=== PATIENT | male | born 1965 | race Caucasian/White ===

== ENCOUNTER 2022-06-21 10:57 | Emergency (ER) | payer SELFPAY ==
--- NOTE | 2022-06-21 11:02 | ED.SKABFB ---
HPI - Skin/Abscess/Foreign Bdy General Chief complaint: Skin/Abscess/Foreign Body Stated complaint: rash on abd and upper back Time Seen by Provider: 06/21/22 11:00 Source: patient Mode of arrival: ambulatory Limitations: no limitations History of Present Illness complaint: rash Onset (ago): day(s) (3) Location: chest and back Severity: moderate Quality: burning and pruritic Pain Consistency: constant Relieving factors: none Exacerbating factors: palpation Context: none Associated symptoms: denies other symptoms Treatments prior to arrival: Benadryl Related Data Allergies Allergy/AdvReac Type Severity Reaction Status Date / Time No Known Allergies Allergy Verified 06/21/22 11:05 Review of Systems Review of Systems: All systems reviewed & are unremarkable except as noted in HPI and below PMFSH Past Medical History Medical History No active medical problems Surgical History Surgical History (Updated 06/21/22 @ 12:06 by Stephen Curran MD) No pertinent past surgical history Exam Const: General: healthy appearing, no acute distress and alert Nutritional Appearance: well nourished Orientation/consciousness: patient oriented x3 Limitations: no limitations HENMT: Head: normal to inspection Ears: external ears normal Eyes: Conjunctivae: conjunctivae normal Pupils: Equal, round and reactive pupils present EOM: EOMs intact bilaterally Neck: Neck: normal visual inspection Chest: Chest palpation & inspection: normal inspection of the chest Resp: Effort & Inspection: normal respiratory effort Auscultation: clear to auscultation bilaterally Cardio: Rate: regular rate Rhythm: regular rhythm GI: Auscultation: normal bowel sounds Back/Spine/Pelvis: Cervical Spine: cervical ROM normal Thoracic/Lumbar Spine: thoraco-lumbar ROM normal Skin: General skin exam: normal color Rashes: rashes noted vesicles right truncal arrangement, borders ( Does not cross the midline) sharp, color with an erythematous base and cuenca, fluctuant and distribution ( dermatomal); nontender Neuro: General: patient oriented x3, moves all extremities, no focal motor deficits and CN's II-XI intact bilaterally Speech: normal speech Gait exam (Neuro): Normal gait present Extrem: General: normal to inspection and no clubbing, cyanosis or edema Psych: Mental Status: mental status grossly normal Affect: normal affect Attitude: cooperative Course Vital Signs Vital signs: Vital Signs Temperature 36.6 C 06/21/22 11:07 Pulse Rate 79 06/21/22 11:07 Respiratory Rate 16 06/21/22 11:07 Blood Pressure 148/102 H 06/21/22 11:07 Pulse Oximetry 96 06/21/22 11:07 Oxygen Delivery Room Air 06/21/22 11:07 Temperature 36.6 C 06/21/22 11:07 Pulse Rate 80 06/21/22 11:26 Respiratory Rate 16 06/21/22 11:26 Blood Pressure 130/82 06/21/22 11:26 Pulse Oximetry 97 06/21/22 11:26 Oxygen Delivery Room Air 06/21/22 11:26 Discharge Plan Discharge Clinical Impression: Shingles Qualifiers: Herpes zoster complications: without complications Qualified Code(s): B02.9 - Zoster without complications Patient Disposition: Home, Self-Care Condition: Stable Instructions: Shingles (ED) Additional Instructions: continue to use Benadryl can try some topical Benadryl [id number] as needed. Can try some topical hydrocortisone [id number] if needed. Prescriptions: New famciclovir 500 mg tablet 500 mg PO Q8H 7 Days Qty: 21 0RF Follow-up/Referrals: Marcus Marin MD [Primary Care Provider] - Time of Disposition: 11:09
[2022-06-21 11:07] VITALS: BP 148/102; PULSE 79; RESP 16; TEMP 36.6; O2SAT 96
[2022-06-21 11:26] VITALS: BP 130/82; PULSE 80; RESP 16; O2SAT 97
== END 2022-06-21 11:27 | disposition home or self-care (01) ==
LOC: CHSED 11:21
PROVIDERS: Emergency Provider Emergency Medicine; PCP Family Medicine
DX: B02.9 Zoster without complications (principal)
CPT/HCPCS: 99283

== ENCOUNTER 2023-12-29 18:28 | Emergency (ER) | payer SELFPAY ==
[2023-12-29] VITALS (14 sets, daily range): BP systolic 135–151; BP diastolic 83–103; PULSE 69–76; RESP 18–20; TEMP 36.8; O2SAT 96–100
--- NOTE | ~2023-12-29 | CT_ITS ---
EXAMINATION: CT BRAIN W/O DATE: 12/29/2023 19:44 INDICATION: Head injury after fall TECHNIQUE: Computed tomography (CT) of the head was performed without intravenous contrast. The dose- length product was 605.33 mGy-cm. Automated exposure control and iterative reconstruction technique w ere employed. COMPARISON: No prior studies for comparison. FINDINGS: Normal brain parenchymal volume for age. Normal anne-white differentiation. No acute intrac ranial hemorrhage, infarction, mass or mass effect. No ventriculomegaly or midline shift. Midline sagittal images demonstrate a normal corpus callosum, c raniovertebral junction and sella turcica. Basilar cisterns are patent. Paranasal sinuses are pneumatized. There are bilateral mastoid effusions. No depressed skull fracture s. IMPRESSION: 1. No acute intracranial abnormality. 2: Bilateral mastoid effusions. Reviewed, dictated and finalized at location A.
--- NOTE | ~2023-12-29 | XR_ITS ---
XR chest 1V portable 12/29/2023 19:43 Indication: Accidental fall Procedure: PA view of the chest Comparison: No prior studies for comparison. Findings: Heart size normal. No focal air space disease, pulmonary edema, pleural effusion or suspect ed pneumothorax. Impression: 1: No acute cardiopulmonary disease. Reviewed, dictated and finalized at location A. Impression: 1: No acute cardiopulmonary disease.
--- NOTE | ~2023-12-29 | CT_ITS ---
EXAMINATION: CT cervical spine wo con DATE: 12/29/2023 19:43 INDICATION: Neck pain after fall TECHNIQUE: Computed tomography (CT) of the cervical spine was performed without intravenous contrast. The dose-length product was 410 mGy-cm. Automated exposure control and iterative reconstruction tech [place] [employer] were employed. COMPARISON: No prior studies for comparison. FINDINGS: There is straightening of cervical lordosis. There is degenerative disc disease at multiple levels. Prominent bridging osteophyte at C5-6 ventrally. Craniovertebral junction is normal. No acut e fracture or traumatic malalignment. There is multilevel uncinate and facet hypertrophy. Lung apices are unremarkable. There is a lipoma in the right posterior paravertebral soft tissues, likely of no significance. IMPRESSION: 1. No acute abnormality of the cervical spine. Reviewed, dictated and finalized at location A.
--- NOTE | ~2023-12-29 | XR_ITS ---
XR pelvis 1-2V 12/29/2023 19:43 Indication: Accidental fall. Procedure: AP pelvis Comparison: No prior studies for comparison. Findings: Pelvic rings are intact. No fracture or traumatic malalignment. No soft tissue abnormality. Impression: 1: No acute fracture. Reviewed, dictated and finalized at location A. Impression: 1: No acute fracture.
--- NOTE | 2023-12-29 18:55 | ECG_ITS ---
Measurements Intervals [place] Rate: 70 P: 41 SC: 147 QRS: 29 QRSD: 149 T: -9 QT: 436 QTc: 472 Interpretive Statements SINUS RHYTHM RIGHT BUNDLE BRANCH BLOCK ST-T WAVE ABNORMALITY IN INFERIOR LEADS- CONSIDER ISCHEMIA BASELINE ARTIFACT- I, II, III, AVR, AVL, AVF ABNORMAL ECG NO PREVIOUS ECG AVAILABLE FOR COMPARISON Electronically Signed On 12-29-2023 19:54:00 CDT by Josafat Henao D.O.
[2023-12-29 19:01] LABS: Glucose Point of Care 149 mg/dl (65-105)
[2023-12-29 19:08] LABS: Basophils Absolute Auto 0.04 K/mm3 (0.00-0.10); Basophils Percent Auto 0.3 % (0.0-1.0); Eosinophils Absolute Auto 0.03 K/mm3 (0.02-0.50); Eosinophils Percent Auto 0.2 % (1.0-6.0); Hematocrit 44.9 % (40.0-54.0); Hemoglobin 14.7 g/dL (14.0-18.0); Immature Granulocyte Absolute 0.08 K/mm3 (0.00-0.00); Immature Granulocyte Percent A 0.6 % (0.0-0.0); Lymphocytes Absolute Auto 1.15 K/mm3 (1.10-4.50); Lymphocytes Percent Auto 8.4 % (18.0-42.0); Mean Corpuscular HGB Conc 32.7 g/dL (32-36); Mean Corpuscular Hemoglobin 29.9 pg (27.0-31.0); Mean Corpuscular Volume 91.4 fL (78.0-102.0); Mean Platelet Volume 9.5 fl (8.7-11.0); Monocytes Absolute Auto 1.01 K/mm3 (0.10-0.90); Monocytes Percent Auto 7.4 % (2.0-11.0); Neutrophils Absolute Auto 11.32 K/mm3 (1.70-7.20); Neutrophils Percent Auto 83.1 % (50.0-70.0); Platelet Count Result 243 K/mm3 (150-420); Red Blood Count 4.91 M/mm3 (4.70-6.10); Red Cell Distribution Width 13.2 % (11.6-14.4); White Blood Count 13.6 K/mm3 (4.8-10.8)
--- NOTE | 2023-12-29 19:16 | ED.FALL ---
HPI - Fall General Chief Complaint: Syncope Stated Complaint: fall and head injury after syncopal episode Time Seen by Provider: 12/29/23 18:44 Source: patient Mode of arrival: ambulatory Limitations: no limitations History of Present Illness HPI Narrative: 58-year-old male with no significant past medical history was standing at his work site when he -- [place] dizzy and subsequently fell down and sustained right supraorbital laceration. -- Unresponsive for an unknown period of time. When the patient woke up he found himself on the floor. No urinary incontinence. No focal neuro deficit after waking up. Denied any headache or vomiting. after the fall the patient drove himself to his mother's house and fed his chickens. He then drove home. His had him come to the ER. -- Subsequently the patient is noted to be confused. He was unable to name the month and his age no history of alcohol or drug use. MD complaint: fall Onset (ago): hour(s) ( 3 hours ago) Fall from: standing Fall witnessed: no Place fall occurred: work Loss of consciousness: yes Prolonged down time: unclear Symptoms prior to fall: dizziness Location of injury: face Location of injury - extremities: Right: elbow Associated symptoms (after fall): denies Related Data Allergies Allergy/AdvReac Type Severity Reaction Status Date / Time No Known Allergies Allergy Verified 06/21/22 11:05 Review of Systems Review of Systems: All systems reviewed & are unremarkable except as noted in HPI and below Constitutional: Constitutional: Reports as per HPI and Reports no additional constitutional complaints Eyes: Eyes: Reports as per HPI and Reports no additional eye complaints ENT: Reports system reviewed and no additional complaints, except as documented and Reports as per HPI Comments: Bilateral hearing aids Cardiovascular: Cardiovascular: Reports as per HPI and Reports no additional cardiovascular complaints Respiratory: Respiratory: Reports as per HPI and Reports no additional respiratory complaints Gastrointestinal: Gastrointestinal: Reports as per HPI and Reports no additional gastrointestinal complaints Genitourinary: Genitourinary: Reports no additional male genitourinary complaints and Reports as per HPI Musculoskeletal: Musculoskeletal: Reports no additional musculoskeletal complaints and Reports as per HPI Integumentary/Breasts: Skin/Breast: Reports system reviewed and no additional complaints, except as docu and Reports as per HPI Comments: right supraorbital laceration. Right elbow small puncture hole with minimal bleeding Neurologic: Reports system reviewed and no additional complaints, except as documented and Reports as per HPI Psychiatric: Psychiatric: Reports no additional psychiatric complaints and Reports as per HPI Endocrine: Endocrine: Reports no additional endocrine complaints and Reports as per HPI Hematologic/Lymphatic: Hematologic/Lymphatic: Reports no additional hematologic/lymphatic complaints and Reports as per HPI Allergic/Immunologic: Allergic/Immunologic: Reports no additional allergic/immunologic complaints and Reports as per HPI PMFSH Past Medical History Medical History No active medical problems Surgical History Surgical History No pertinent past surgical history Exam Narrative: blood pressure is 151/99. Patient is not orthostatic. Const: General: no acute distress Orientation/consciousness: patient oriented x3 Limitations: no limitations HENMT: Head: normal to inspection Head images: 1. 2 cm laceration 2. 2 cm laceration Ears: external ears normal and TM's normal bilaterally Face/Nose/Sinus: Normal external nose present and Normal nares present Face and sinus: normal facial exam Mouth: Yes Normal oral and palatal mucosa present Throat: posterior oropharynx
[2023-12-29 19:19] LABS: Appearance Urine Clear (Clear); Bilirubin Urine Negative (Negative); Blood Urine Negative (Negative); Color Urine Yellow (Yellow); Glucose Urine UA Negative (Negative); Ketones Urine Negative (Negative); Leukocyte Esterase Ur Negative LEU/UL (Negative); Nitrate Urine Negative (Negative); Protein Urine 1+ (Negative); Specific Grav Ur 1.025 (1.010-1.020)
[2023-12-29 19:22] LABS: Partial Thromboplastin Time 21.9 Sec (23.9-30.70); Prothrombin Time 10.9 Seconds (9.50-12.1)
[2023-12-29 19:25] LABS: Add Urine Microscopic? YES; Bacteria Urine Trace /hpf; RBC Urine 0-2 /hpf (0-2); WBC Urine 0-3 /hpf (0-3)
[2023-12-29 19:26] LABS: Mucus Urine Rare /lpf
[2023-12-29 19:28] LABS: Lactic Acid Reflex 1.2 mmol/L (0.4-2.0)
[2023-12-29 19:34] LABS: Amphetamine Screen Urine Negative (Negative); Barbiturate Screen Urine Negative (Negative); Benzodiazepines Screen Urine Negative (Negative); Cannabinoid Screen Urine Negative (Negative); Cocaine Screen Urine Negative (Negative); Methadone Screen Urine Negative (Negative); Opiate Screen Urine Negative (Negative); Phencyclidine Screen Urine Negative (Negative)
[2023-12-29 19:35] LABS: Alanine Aminotransferase 82 U/L (16-63); Albumin Level 3.7 g/dL (3.4-5.0); Alkaline Phosphatase 67 U/L (46-116); Anion Gap 7 mmol/L (8-16); Aspartate Amino Transferase 69 U/L (15-37); Bilirubin,Total 0.4 mg/dL (0.00-1.00); Blood Urea Nitrogen 26 mg/dL (7-18); Calcium 8.6 mg/dL (8.5-10.1); Carbon Dioxide 30 mmol/L (21-32); Chloride 106 mmol/L (98-108); Estimated CRCL calculation 96 ml/min; Estimated Glomerular Filt Rate > 60; Glucose 124 mg/dL (70-99); Osmolality Calculated 301 mOsm/kg (285-295); Potassium 4.4 mmol/L (3.5-5.1); Sodium 143 mmol/L (136-145); Total Protein 6.6 g/dL (6.4-8.2); Troponin I 10.5 ng/L (0.00-60.4)
[2023-12-29 19:39] LABS: Ethanol < 3 mg/dL (0-6)
[2023-12-29 19:40] LABS: Thyroid Stimulating Hormone 2.35 uIU/mL (0.36-3.74)
[2023-12-29 19:41] LABS: Acetaminophen < 2 ug/mL (10-30); NT Pro B Type Natriuretic Pept 31 pg/mL (0-125)
--- NOTE | 2023-12-29 20:40 | PC.NURSE ---
Discussed c pt need to stay for obs due to syncopal episode and head injury. Pt aware of risks but not wanting to be admitted for 23 hr obs even p and this RN explained everything. Pt wanting to sign AMA and will go home c and son to monitor.
== END 2023-12-29 20:40 | disposition left against medical advice (07) ==
PROVIDERS: Emergency Provider Internal Medicine Critical Care Medicine; PCP Family Medicine
DX: R55 Syncope and collapse (principal); S06.9X9A Unspecified intracranial injury with loss of consciousness of unspecified duration, initial encounter; W19.XXXA Unspecified fall, initial encounter; Y99.0 Civilian activity done for income or pay
CPT/HCPCS: 12013; 36415; 70450; 71045; 72125; 72170; 80053; 80307; 81001; 82948; 83605; 83880; 84443; 84484; 85025; 85610; 85730; 93005; 99284

== ENCOUNTER 2024-01-14 16:01 | Emergency (ER) | payer BC, SELFPAY ==
[2024-01-14] VITALS (11 sets, daily range): BP systolic 121–158; BP diastolic 85–109; PULSE 58–109; RESP 14–19; TEMP 36.4; O2SAT 96–100
--- NOTE | ~2024-01-14 | XR_ITS ---
EXAMINATION: XR chest 1V portable DATE: 01/14/2024 16:36 INDICATION: Chest pain. TECHNIQUE: A single frontal view of the chest was obtained. COMPARISON: Chest view 12/29/2023 FINDINGS: There is mild atelectasis at the lung bases. No pleural effusion or pneumothorax. The heart size is normal. IMPRESSION: 1. Mild atelectasis at the lung bases. Reviewed, dictated and finalized at location A.
--- NOTE | 2024-01-14 16:14 | ECG_ITS ---
Measurements Intervals [place] Rate: 97 P: 39 MA: 139 QRS: 38 QRSD: 149 T: 5 QT: 406 QTc: 517 Interpretive Statements SINUS RHYTHM POSSIBLE LEFT ATRIAL ENLARGEMENT RIGHT BUNDLE BRANCH BLOCK BORDERLINE ST-T WAVE ABNORMALITY- INFERIOR LEADS BASELINE ARTIFACT- I, III, AVR, AVL, AVF ABNORMAL ECG COMPARED TO ECG 12/29/2023 19:06:06 NO SIGNIFICANT CHANGES Electronically Signed On 01-14-2024 16:28:36 CDT by Josafat Henao D.O.
--- NOTE | 2024-01-14 16:16 | ED.SYNCOPE ---
HPI - Syncope General Chief Complaint: Syncope Stated Complaint: syncope Time Seen by Provider: 01/14/24 16:05 History of Present Illness HPI narrative: Patient presents here after syncopal episode, he has had several syncopal episodes over the last few weeks. When EMS arrived they did do a rhythm strip in noticed that he did appear to be in second degree type 2 heart block, they gave him a dose of some atropine after which he threw up and then converted to sinus rhythm. He denies any complaints right now. Related Data Allergies Allergy/AdvReac Type Severity Reaction Status Date / Time No Known Allergies Allergy Verified 01/14/24 16:17 Review of Systems Review of Systems: CONST: No fever. HEENT: No sore throat C/V: No chest pain RESP: No cough GI: Nausea now resolved : No dysuria. M/S: No joint pain. SKIN: No rash. NEURO: Syncope PSYCH: [No depression] [facility] Past Medical History Medical History No active medical problems Surgical History Surgical History No pertinent past surgical history Exam Narrative: EXAMINATION OF ORGAN SYSTEMS/BODY AREAS: Constitutional: Vital signs per nursing GENERAL:[No acute distress, non-toxic appearing.] HEAD: Normal with no signs of head trauma. EYES: EOMI, conjunctiva normal ENT: Hearing grossly intact LUNGS: Nonlabored breathing. HEART: Tachycardic ABD: [Soft], [nontender to palpation] EXT: Normal range of motion SKIN: [No rashes or lesions.] NEURO: [Alert and oriented x 3. No gross focal sensory or strength deficits.] PSYCH: Normal affect Course Vital Signs Vital signs: Vital Signs Temperature 97.6 F 01/14/24 16:05 Pulse Rate 109 H 01/14/24 16:05 Respiratory Rate 16 01/14/24 16:05 Blood Pressure 158/109 H 01/14/24 16:05 Pulse Oximetry 96 01/14/24 16:05 Oxygen Delivery Room Air 01/14/24 16:05 Temperature 97.6 F 01/14/24 16:05 Pulse Rate 63 01/14/24 18:31 Respiratory Rate 17 01/14/24 18:31 Blood Pressure 132/96 H 01/14/24 18:31 Pulse Oximetry 96 01/14/24 18:16 Oxygen Delivery Room Air 01/14/24 16:11 MDM - Syncope MDM Narrative Medical decision making narrative: Patient presenting here with syncope, has had multiple syncopal episodes recently, and totally done by EMS does show second-degree heart block type 2, he is now back in sinus rhythm. Labs within acceptable limits, I did call the the college teacher here Dr Delgado who recommended transfer to [facility] for possible pacemaker placement. I discussed this plan with the patient who reluctantly accepts. Called transfer center. Dr Yan hospitalist accepts. There is a bed available; patient will be transferred in stable condition at this time. On telemetry at 1844 still in NSR. Lab Data 01/14/24 16:16 01/14/24 16:16 Labs: Lab Results 01/14/24 Range/Units 16:16 WBC 8.5 (4.5-10.0) K/mm3 RBC 4.80 (4.6-6.20) M/mm3 Hgb 14.8 (14.0-18.0) g/dL Hct 44.9 (42.0-52.0) % MCV 93.5 (80-100) fl MCH 30.8 (26-34) pg MCHC 33.0 (32-36) g/dl RDW 13.3 (11.5-14.5) % Plt Count 242 (150-375) k/mm3 MPV 9.8 (7.4-10.4) fl Immature Gran % (Auto) 0.4 (0-0.5) % Neut % (Auto) 68.3 (45.5-73.1) % Lymph % (Auto) 20.4 (18.3-44.2) % [place] % (Auto) 9.4 H (2.6-8.5) % Eos % (Auto) 1.1 (0-4.4) % Baso % (Auto) 0.4 (0.2-1.2) % Lymph # (Auto) 1.74 (0.9-3.2) K/mm3 [place] # (Auto) 0.8 H (0.1-0.6) K/mm3 Eos # (Auto) 0.1 (0-0.3) K/mm3 Baso # (Auto) 0.0 (0.0-0.1) K/mm3 Abs Immat Gran (auto) 0.03 (0.00-0.031) K/mm3 Absolute Neuts (auto) 5.9 (1.3-6.7) K/mm3 Absolute Nucleated RBC 0.000 (0.0-0.012) K/mm3 Nucleated RBC % 0.0 (0.0-0.2) % Sodium 137 (137-145) mmol/L Potassium 4.1 (3.4-5.0) mmol/L Chloride 106 (98-107) mmol/L Carbon Dioxide 29 (
[2024-01-14 16:22] LABS: Basophils Percent Auto 0.4 % (0.2-1.2); Eosinophils Absolute Auto 0.1 K/mm3 (0-0.3); Eosinophils Percent Auto 1.1 % (0-4.4); Hematocrit 44.9 % (42.0-52.0); Hemoglobin 14.8 g/dL (14.0-18.0); Immature Granulocyte Absolute 0.03 K/mm3 (0.00-0.031); Immature Granulocyte Percent A 0.4 % (0-0.5); Lymphocytes Absolute Auto 1.74 K/mm3 (0.9-3.2); Lymphocytes Percent Auto 20.4 % (18.3-44.2); Mean Corpuscular Hemoglobin 30.8 pg (26-34); Mean Corpuscular Volume 93.5 fl (80-100); Mean Platelet Volume 9.8 fl (7.4-10.4); Monocytes Absolute Auto 0.8 K/mm3 (0.1-0.6); Monocytes Percent Auto 9.4 % (2.6-8.5); Neutrophils Absolute Auto 5.9 K/mm3 (1.3-6.7); Neutrophils Percent Auto 68.3 % (45.5-73.1); Platelet Count Result 242 k/mm3 (150-375); Red Cell Distribution Width 13.3 % (11.5-14.5); White Blood Count 8.5 K/mm3 (4.5-10.0)
[2024-01-14 16:33] LABS: Alanine Aminotransferase 27 U/L (6-50); Albumin Level 4.1 g/dL (3.5-5.1); Alkaline Phosphatase 68 U/L (38-126); Anion Gap 2 mmol/L (4-12); Aspartate Amino Transferase 32 U/L (17-59); Bilirubin,Total 0.4 mg/dL (0.2-1.3); Blood Urea Nitrogen 28 mg/dL (9-20); Carbon Dioxide 29 mmol/L (22-30); Chloride 106 mmol/L (98-107); Estimated CRCL calculation 112 ml/min; Estimated Glomerular Filt Rate > 60; Glucose 129 mg/dL (65-110); Potassium 4.1 mmol/L (3.4-5.0); Sodium 137 mmol/L (137-145)
[2024-01-14 16:46] LABS: Troponin I < 0.012 ng/mL (0.000-0.034)
--- NOTE | 2024-01-14 18:14 | PC.NURSE ---
[facility] transfer center called at 1813 for triage report and update on patient for admission
--- NOTE | 2024-01-14 19:16 | ECG_ITS ---
Measurements Intervals [place] Rate: 58 P: 41 TN: 141 QRS: 29 QRSD: 146 T: 10 QT: 462 QTc: 457 Interpretive Statements SINUS BRADYCARDIA RIGHT BUNDLE BRANCH BLOCK BORDERLINE ST-T WAVE ABNORMALITY- INFERIOR LEADS ABNORMAL ECG COMPARED TO ECG 01/14/2024 16:22:49 SINUS BRADYCARDIA NOW PRESENT Electronically Signed On 01-15-2024 7:27:15 CDT by Josafat Henao D.O.
[2024-01-14 19:49] LABS: Troponin I < 0.012 ng/mL (0.000-0.034)
== END 2024-01-14 20:58 | disposition short-term general hospital (02) ==
PROVIDERS: Emergency Provider Emergency Medicine; PCP Family Medicine
DX: R55 Syncope and collapse (principal); I44.1 Atrioventricular block, second degree; I45.10 Unspecified right bundle-branch block; R00.1 Bradycardia, unspecified; R94.31 Abnormal electrocardiogram [ECG] [EKG]
CPT/HCPCS: 36415; 71045; 80053; 84484; 85025; 93005; 99285

== ENCOUNTER 2024-12-08 07:38 | Emergency (ER) | payer BC, SELFPAY ==
--- NOTE | ~2024-12-08 | XR_ITS ---
XR chest 2V 12/08/2024 08:02 Indication: Shortness of breath Procedure: 2 view chest Comparison: 01/14/2024 Findings: Heart size normal. Pacemaker leads are stable. Left there is left basilar atelectasis/scarr ing, unchanged. The lungs are hyperinflated which is consistent with, but not diagnostic of chronic o bstructive pulmonary disease. No focal pneumonia, edema, significant effusion or pneumothorax. Impression: 1: Left basilar atelectasis/scarring, unchanged. Reviewed, dictated and finalized at location B. [facility] COUNTER Impression: 1: Left basilar atelectasis/scarring, unchanged.
[2024-12-08 07:38] VITALS: BP 149/91; PULSE 72; RESP 17; TEMP 36.5; O2SAT 100
--- NOTE | 2024-12-08 07:46 | ED_ITS ---
HPI - URI/Sore Throat General Chief Complaint: Upper Respiratory Infection Stated Complaint: cold sxs/ URI Time Seen by Provider: 12/08/24 07:45 Source: patient Mode of arrival: ambulatory Limitations: no limitations History of Present Illness HPI Narrative: Patient is a 59-year-old male with cough and chest congestion of the upper chest for the past 4 days. He is having white phlegm. No fever or chills. Sick contact 2 weeks ago with his son. Similar symptoms. Shortness of breath with exertion only. No chest pain. Nonsmoker. MD elicited complaint: cough and nasal congestion Pertinent past history: other ( None) Onset (ago): day(s) (4) Consistency: constant Severity: mild Pain scale (0-10): 1 Exacerbating factors: exertion Relieving factors: rest Context: sick contacts Associated symptoms: nasal congestion and shortness of breath Treatments prior to arrival: none Related Data Allergies Allergy/AdvReac Type Severity Reaction Status Date / Time No Known Allergies Allergy Verified 12/08/24 07:46 Review of Systems Review of Systems: All systems reviewed & are unremarkable except as noted in HPI and below Constitutional: Constitutional: Reports no additional constitutional complaints Eyes: Eyes: Reports no additional eye complaints ENT: Reports system reviewed and no additional complaints, except as documented Cardiovascular: Cardiovascular: Reports no additional cardiovascular complaints Respiratory: Respiratory: Reports no additional respiratory complaints Gastrointestinal: Gastrointestinal: Reports no additional gastrointestinal complaints Genitourinary: Genitourinary: Reports no additional male genitourinary complaints Musculoskeletal: Musculoskeletal: Reports no additional musculoskeletal complaints Integumentary/Breasts: Skin/Breast: Reports system reviewed and no additional complaints, except as docu Neurologic: Reports system reviewed and no additional complaints, except as do cumented Psychiatric: Psychiatric: Reports no additional psychiatric complaints Endocrine: Endocrine: Reports no additional endocrine complaints Hematologic/Lymphatic: Hematologic/Lymphatic: Reports no additional hematologic/lymphatic complaints Allergic/Immunologic: Allergic/Immunologic: Reports no additional allergic/immunologic complaints PMFSH Past Medical History Medical History No active medical problems Surgical History Surgical History No pertinent past surgical history Exam Const: General: ill appearing Nutritional Appearance: well nourished Orientation/consciousness: patient oriented x3 Limitations: no limitations HENMT: Head: normal to inspection Ears: external ears normal Face/Nose/Sinus: Normal external nose present Eyes: Conjunctivae: conjunctivae normal Pupils: Equal, round and reactive pupils present EOM: EOMs intact bilaterally Neck: Neck: normal visual inspection Chest: Chest palpation & inspection: normal inspection of the chest Resp: Effort & Inspection: normal respiratory effort and not labored Auscultation: clear to auscultation bilaterally, crackles ( bilateral lower bases), no rales, rhonchi ( bilateral lower bases), no wheezes, breath sounds present and diminished lung sounds diffuse Cardio: Rate: regular rate Rhythm: regular rhythm Heart sounds: no murmurs GI: Inspection: non-distended GI Palp: Yes Soft to palpation and No Tenderness to palpation present (GI) Auscultation: normal bowel sounds : General: Yes bladder normal to palpation Back/Spine/Pelvis: Back: no CVA tenderness Skin: General skin exam: normal color Rashes: no rashes Wounds: no wounds Neuro: General: patient oriented x3 Cranial nerves: Yes Nystagmus not present Speech: normal speech Extrem: General: normal to inspection Psych: Mental Status: mental status grossly normal Affect: normal affect Attitude: cooperative Course Vital Signs Vital signs: Vital Signs Temperature 36.5 C 12/08/24 07:38 Pulse Rate 72 12/08/24 07:38 Respiratory Rate 17 12/08/24 07:38 Blood Pressure 149/91 H 12/08/24 07:38 Pulse Oximetry 100 12/08/24 07:38 Oxygen Delivery Room Air 12/08/24 07:38 Temperature 36.5 C 12/08/24 07:38 Pulse Rate 72 12/08/24 07:38 Respiratory Rate 17 12/08/24 07:38 Blood Pressure 149/91 H 12/08/24 07:38 Pulse Oximetry 100 12/08/24 07:48 Oxygen Delivery Room Air 12/08/24 07:48 MDM - URI/Sore Throat MDM Narrative Medical decision making narrative: patient is a 59-year-old male with upper respiratory complaints. We will do a COVID panel test. We will do a chest x-ray. Lab Data Attestation: I reviewed the patient's lab results. Labs: Lab Results 12/08/24 Range/Units 07:42 Influenza A (RT-PCR) Negative (Negative) Influenza B (RT-PCR) Negative (Negative) RSV (RT-PCR) Negative (Negative) SARS-CoV-2 RNA (RT-PCR) Negative (Negative) Imaging Data Attestation: I personally reviewed and interpreted this imaging study as follows: Radiologist's impression: Chest x-ray is negative for acute process Discharge Plan Discharge Clinical Impression: Bronchitis Patient Disposition: Home, Self-Care Condition: Stable Instructions: Antibiotic Form, Acute Bronchitis (ED) Patient Language: Kitt[place] Prescriptions: New azithromycin 250 mg tablet See Rx Instructions .ROUTE .COMPLEX Qty: 6 0RF Rx Instructions: For 250 mg dose pack: take 500 mg today (day 1), then 250 mg for 4 days (days 2-5) prednisone 20 mg tablet 40 mg PO DAILY 3 Days Qty: 6 0RF Follow-up/Referrals: Marcus Marin MD [Primary Care Provider] - Time of Disposition: 08:49
[2024-12-08 07:48] VITALS: O2SAT 100
--- OUTSIDE RECORDS SUMMARY | 2024-12-08 08:20 | XMS_ITS | Clinical Summary ---
Author Organization [facility] Address [address] [place] [address] Care Team Providers Care Drier Name Role Phone Gibson Sweeney MD Unavailable [phone] Marcus Marin MD Primary Care Provide r Allergies No known active allergies Medications multivitamin tabletIndication s:Vitamin Deficiency Prevention Take 1 tablet by mouth Active Active Problems Problem Noted Date Diagnosed Date Cardiac pacemaker in situ 01/19/2024 Overview (01/19/2024): Mcfarlane Assurity Dual Pacemaker. Dx; Second Degree AVB Type II. DOI 01/17/2024- Patel. Ramy leija. Sensation of fullness in ear 01/16/2024 Heart block AV second degree 01/14/2024 Encounters Date Type Department Care Team Description 09/27/2024 8:45 AM SCALLOPER Office Visit [facility] Medical Group Cardiology [address] [place] [address] Isabelle Navas MD Heart block AV second degree (Primary Dx); Cardiac pacemaker in situ from Last 3 Months Social History Tobacco Use Types Packs/Day Years Used Date Smoking Tobacco: Never Tobacco Cessation:Counseling Given: Not Answered [facility] Utilities Answer Date Recorded In the past 12 months has e electric, gas, oil, or water company threatened to shut off services in your home? Patient declined 01/17/2024 Social Connection and Isolation Panel [NHANES] A nswer Date Recorded In a typical week, how many times do you talk on the phone with family, friends, or neighbors? Patient declined 01/17/2024 How often do you get togethe r with friends or relatives? Patient declined 01/17/2024 How often do you attend latter-day or mosque serv ices? Patient declined 01/17/2024 Do you belong to any clubs o r organizations such as latter-day groups, unions, fraternal or athletic groups, or school groups? Patient declined 01/17/2024 How often do you attend meet ings of the clubs or organizations you belong to? Patient declined 01/17/2024 Are you , , di vorced, , never , or living with a partner? 01/17/2024 Overall Financial Resource Strain (CARDIA) Answe r Date Recorded How hard is it for you to pa y for the very basics like food, housing, medical care, and heating? Patient declined 01/17/2024 Hunger Vital Sign Answer Date Recorded Within the past 12 months, y ou worried that your food would run out before you got the money to buy more. Never true 01/17/20 24 Within the past 12 months, t he food you bought just didn't last and you didn't have money to get more. Never true 01/17/2024 PRAPARE - Transportation Answer Date Re corded In the past 12 months, has l ack of transportation kept you from medical appointments or from getting medications? No 10/2023 In the past 12 months, has l ack of transportation kept you from meetings, work, or from getting things needed for daily living? No 01/17/2024 Housing Stability Vital Sign Answer Ryan e Recorded In the last 12 months, was t here a time when you were not able to pay the mortgage or rent on time? No 01/17/2024 In the last 12 months, how many places have you lived? 1 01/17/2024 In the last 12 months, was t here a time when you did not have a steady place to sleep or slept in a senior care (including now)? No 01/17/2024 Personal Safety Answer Date Recorded Have you ever been in or are you currently in a harmful physical or emotional relationship or is someone making you feel afraid or unsafe? Denies 01/14/2024 Sex and Gender Information Value Date Recorded Sex Assigned at Not on file Legal Sex Male 5:55 PM CDT Gender Identity Not on file Sexual Orientation Not on file Obstetrics History Last Filed Vital Signs Vital Sign Reading Time Taken Comments Blood Pressure 128/78 09/27/2024 8:36 AM SCALLOPER Pulse 66 09/27/2024 8:36 AM SCALLOPER Temperature 36.7 C (98.1 F) 01/18/2024 8:00 AM CDT Respiratory Rate 16 01/18/2024 8:00 AM CDT Oxygen Saturation 94% 09/27/2024 8:36 AM SCALLOPER Inhaled Oxygen Concentration - - Weight 84.8 kg (187 lb) 09/27/2024 8:36 AM SCALLOPER Height 188 cm (6' 2 ) 09/27/2024 8:36 AM SCALLOPER Body Mass Index 24.01 09/27/2024 8:36 AM SCALLOPER Plan of Treatment Health Maintenance Due Date Last Done Comments Colon Cancer Screening-Colonoscopy 1963 Depression Screening 1963 Hepatitis C Screening 1963 Prostate Cancer Screening-PSA 1963 DTaP/Tdap/Td Vaccine (1 - Tdap) 1974 Hepatitis B Screening 1981 Regular Well Visit/Exam 18-64 1981 Zoster Vaccine (1 of 2) 2013 Influenza Vaccine (#1) 2024 Pneumococcal vaccine <65 Aged Out No longer eligible based on patient's age to complete this topic Medical Devices Implanted Type Area Camp Boss Device Identifier Shelf Expiration Date Model / Serial / Lot [employer] Tendril Sts 6fr 58cm Is-1 Connector Active Fixation Bipolar Soft /58 - [id number] - [id number] Implanted:Qt y: 1 on 01/17/2024 by Gibson Sweeney MD at [facility] Lead Right: Ventricle [employer] 10/17/2026 2088TC/5 8 / [id number] / [employer] Tendril Sts 6fr 52cm Is-1 Connector Active Fixation Bipolar Soft /52 - [id number] - [id number] Implanted:Qt y: 1 on 01/17/2024 by Gibson Sweeney MD at [facility] Lead Right: Atrial Appendage [employer] 11/17/2026 2088TC/5 2 / [id number] / [employer] Assurity Mri [id number] 2 Chamber Is-1 Connector Thk6mm Pacemaker [id number] - [id number] - [id number] Implanted:Qt y: 1 on 01/17/2024 by Gibson Sweeney MD at [facility] Pacemaker Right: Infraclavicular Anterior Chest Wall [employer] 05/11/2025 [id number] / [id number] / Insurance BL CHOICE PRF PPO ID BL CHOICE PRF PPO [place] Advance Directives For more information, please contact: [phone] * Full Code (Latest Code Status on File) Date Activated Date Inactivated Comments 01/14/2024 11:56 PM 01/18/2024 7:09 PM Care Teams Drier Relationship Specialty Start Date End Date Marcus Marin MD [address] [place] [address] PCP - General Family Medicine 01/26/24 Gibson Sweeney MD [address] [place] [id number] Consulting Physician Cardiology 01/18/24
--- OUTSIDE RECORDS SUMMARY | 2024-12-08 08:20 | XMS_ITS | Referral Summary ---
Author Organization [facility] Address [address] [place] [address] Care Team Providers Care Rollway Worker Name Role Phone Gibson Sweeney MD Unavailable [phone] Marcus Marin MD Primary Care Provide r Encounters Date Type Department Care Team Description 09/27/2024 8:45 AM QUICK SKETCH ARTIST Office Visit [facility] Medical Group Cardiology [address] [place] [phone] Isabelle Navas MD Heart block AV second degree (Primary Dx); Cardiac pacemaker in situ from Last 3 Months Allergies No known active allergies Medications multivitamin tabletIndication s:Vitamin Deficiency Prevention Take 1 tablet by mouth Active Active Problems Problem Noted Date Diagnosed Date Cardiac pacemaker in situ 01/19/2024 Overview (01/19/2024): Mcfarlane Assurity Dual Pacemaker. Dx; Second Degree AVB Type II. DOI 01/17/2024- Patel. Ramy leija. Sensation of fullness in ear 01/16/2024 Heart block AV second degree 01/14/2024 Social History Tobacco Use Types Packs/Day Years Used Date Smoking Tobacco: Never Tobacco Cessation:Counseling Given: Not Answered [facility] Utilities Answer Date Recorded In the past [...] declined 01/17/2024 How often do you attend presybeterian or lutheran serv ices? Patient declined 01/17/2024 Do you belong to any clubs o r organizations such as presybeterian groups, unions, fraternal or athletic groups, or [...] place to sleep or slept in a long term (including now)? No 01/17/2024 Personal Safety Answer [...] on file Sexual Orientation Not on file Last Filed Vital Signs Vital Sign Reading Time Taken Comments Blood Pressure 128/78 09/27/2024 8:36 AM QUICK SKETCH ARTIST Pulse 66 09/27/2024 8:36 AM QUICK SKETCH ARTIST Temperature 36.7 C (98.1 F) 01/18/2024 8:00 AM CDT Respiratory Rate 16 01/18/2024 8:00 AM CDT Oxygen Saturation 94% 09/27/2024 8:36 AM QUICK SKETCH ARTIST Inhaled Oxygen Concentration - - Weight 84.8 kg (187 lb) 09/27/2024 8:36 AM QUICK SKETCH ARTIST Height 188 cm (6' 2 ) 09/27/2024 8:36 AM QUICK SKETCH ARTIST Body Mass Index 24.01 09/27/2024 8:36 AM QUICK SKETCH ARTIST Plan of Treatment Not on file Medical Devices Implanted Type Area Firefighter Device Identifier Shelf Expiration Date Model / Serial / Lot [employer] Tendril Sts 6fr 58cm Is-1 Connector Active Fixation Bipolar Soft /58 - [id number] - [id number] Implanted:Qt y: 1 on 01/17/2024 by Gibson Sweeney MD at [facility] Lead Right: Ventricle [employer] 10/17/20268TC/5 8 / [id number] / [employer] Tendril Sts 6fr 52cm Is-1 Connector Active Fixation Bipolar Soft /52 - [id number] - [id number] Implanted:Qt y: 1 on 01/17/2024 by Gibson Sweeney MD at [facility] Lead Right: Atrial Appendage [employer] 11/17/20268TC/5 2 / [id number] / [employer] Assurity Mri [id number] 2 Chamber Is-1 Connector Thk6mm Pacemaker [id number] - [id number] - [id number] Implanted:Qt y: 1 on 01/17/2024 by Gibson Sweeney MD at [facility] Pacemaker Right: Infraclavicular Anterior Chest Wall [employer] 05/11/2025 [id number] / [id number] / Insurance BL CHOICE PRF PPO [place] CHOICE PRF PPO [place] Advance Directives For more information, please contact: [phone] * Full Code (Latest Code Status on File) Date Activated Date Inactivated Comments 01/14/2024 11:56 PM 01/18/2024 7:09 PM Care Teams Rollway Worker Relationship Specialty Start Date End Date Marcus Marin MD [address] [place] [address] PCP - General Family Medicine 01/26/24 Gibson Sweeney MD [facility] [address] [place] [address] Consulting Physician Cardiology 01/18/24
[2024-12-08 08:35] LABS: Influenza A QL RT-PCR Negative (Negative); Influenza B QL RT-PCR Negative (Negative); RSV RNA, RT-PCR Negative (Negative); SARS-CoV-2 RNA PCR Negative (Negative)
[2024-12-08 08:56] VITALS: BP 120/81; PULSE 70; RESP 17; TEMP 36.6; O2SAT 100
== END 2024-12-08 08:56 | disposition home or self-care (01) ==
PROVIDERS: Emergency Provider Emergency Medicine; PCP Family Medicine
DX: J40 Bronchitis, not specified as acute or chronic (principal); Z20.822 Contact with and (suspected) exposure to COVID-19
CPT/HCPCS: 71046; 87637; 99283

== ENCOUNTER 2025-02-26 19:35 | Emergency (ER) | payer BC, SELFPAY ==
[2025-02-26 19:35] VITALS: BP 152/97; PULSE 70; RESP 18; TEMP 36.6; O2SAT 98
--- OUTSIDE RECORDS SUMMARY | 2025-02-26 19:37 | XMS_ITS | Clinical Summary ---
Author Organization [facility] Address [address] [place] [address] Care Team Providers Care Supervisor [employer] Name Role Phone Gibson Sweeney MD Unavailable [phone] Marcus Marin MD Primary Care Provide r [...] Encounters Date Type Department Care Team Description 12/12/2024 8:30 AM RN OFFICE Ancillary Procedure [facility] Medical Group Cardiology [address] [place] [phone] Cardiac pacemaker in situ (Primary Dx); Complete heart block (HCC); Heart block AV second degree from Last 3 Months Social History Tobacco Use Types Packs/Day Years Used Date Smoking Tobacco: Never Tobacco Cessation:Counseling Given: Not Answered [facility] Utilities Answer Date Recorded In [...] declined 01/17/2024 How often do you attend rastafari or christianity serv ices? Patient declined 01/17/2024 Do you belong to any clubs o r organizations such as rastafari groups, unions, fraternal or athletic groups, or [...] place to sleep or slept in a detention (including now)? No 01/17/2024 Personal Safety Answer [...] Comments Blood Pressure 128/78 09/27/2024 8:36 AM RN OFFICE Pulse 66 09/27/2024 8:36 AM RN OFFICE Temperature 36.7 C (98.1 F) 01/18/2024 8:00 AM CDT Respiratory Rate 16 01/18/2024 8:00 AM CDT Oxygen Saturation 94% 09/27/2024 8:36 AM RN OFFICE Inhaled Oxygen Concentration - - Weight 84.8 kg (187 lb) 09/27/2024 8:36 AM RN OFFICE Height 188 cm (6' 2 ) 09/27/2024 8:36 AM RN OFFICE Body Mass Index 24.01 09/27/2024 8:36 AM RN OFFICE Plan of Treatment Health Maintenance Due Date [...] this topic Medical Devices Implanted Type Area Manufacturing Helper Device Identifier Shelf Expiration Date Model / Serial / Lot [employer] Tendril Sts 6fr 58cm Is-1 Connector Active Fixation Bipolar Soft /58 - [id number] - [id number] Implanted:Qt y: 1 on 01/17/2024 by Gibson Sweeney MD at [facility] Lead Right: Ventricle [employer] 10/17/2026 2088TC/5 8 / [id number] / [employer] Tendril Sts 6fr 52cm Is-1 Connector Active Fixation Bipolar Soft /52 - [id number] - [id number] Implanted:Qt y: 1 on 01/17/2024 by Gibson Sweeney MD at [facility] Lead Right: Atrial Appendage [employer] 11/17/2026 2088TC/5 2 / [id number] / [employer] Assurity Mri [id number] Chamber Is-1 Connector Thk6mm Pacemaker [id number] - [id number] - [id number] Implanted:Qt y: 1 on 01/17/2024 by Gibson Sweeney MD at [facility] Pacemaker Right: Infraclavicular Anterior Chest Wall [employer] 05/11/2025 [id number] / [id number] / Procedures Procedure Name Priority Date/Time Associated Diagnosis Comments DEVICE CHECK - REMOTE Routine 12/18/2024 1:45 PM RN OFFICE Complete heart block (HCC) from Last 3 Months Results * DEVICE CHECK - REMOTE (12/18/2024 1:45 PM RN OFFICE) Anatomical Region Laterality Modality Other Narrative 12/21/2024 8:10 AM RN OFFICE [employer] Assurity Dual Pacemaker. Dx; Second Degree AVB Type II. DOI 01/17/2024-Patel. [place] remote. Routine DDD Pacemaker Remote. Transmission attached. Battery status: 2.99 V, 9.8-10.1 years remaining battery life to GREY. Stable lead impedances, pacing and sensing thresholds. Presenting rhythm: A paced/V paced AP-39%, COMMERCIAL LOAN ANALYST-> 99% 2 AT/AF episodes noted, longest episode was 1 minute and 50 seconds in duration, IEGM demonstrates atrial tachycardia. AF [place] < 1%. No Ventricular high rate episodes detected. Medications: No anticoagulation or cardiac meds See scanned report. Office pacemaker follow up: 04/25/25 [place] remote f/u 03/13/25. Eduardo Meredith, RN us Gibson Sweeney MD [facility] [place] [facility] Final Result from Last 3 Months Insurance [place] Advance Directives For more information, please contact: [phone] * Full Code (Latest Code Status on File) Date Activated Date Inactivated Comments 01/14/2024 11:56 PM 01/18/2024 7:09 PM Care Teams Supervisor [employer] Relationship Specialty Start Date End Date Marcus Marin MD [address] [place] [address] PCP - General Family Medicine 01/26/24 Gibson Sweeney MD [facility] [address] [address] Consulting Physician Cardiology 01/18/24
--- OUTSIDE RECORDS SUMMARY | 2025-02-26 19:37 | XMS_ITS | Referral Summary ---
Author Organization [facility] Address [address] [place] [address] Care Team Providers Care Basket Weaver Name Role Phone Gibson Sweeney MD Unavailable [phone] Marcus Marin MD Primary Care Provide r Encounters Date Type Department Care Team Description 12/12/2024 8:30 AM SENIOR EXAMINER Ancillary Procedure [facility] Medical Group Cardiology [address] [place] [phone] Cardiac pacemaker in situ (Primary Dx); Complete heart block (HCC); Heart block AV second degree from Last 3 Months Allergies No known active allergies Medications multivitamin tabletIndication s:Vitamin Deficiency Prevention Take 1 tablet by mouth Active Active Problems Problem Noted Date Diagnosed Date Cardiac pacemaker in situ 01/19/2024 Overview (01/19/2024): Mcfarlane Assurity Dual Pacemaker. Dx; Second Degree AVB Type II. DOI 01/17/2024- Kahanda. Ramy leija. Sensation of fullness in ear 01/16/2024 Heart block AV second degree 01/14/2024 Social History Tobacco Use Types Packs/Day Years Used Date Smoking Tobacco: Never Tobacco Cessation:Counseling Given: Not Answered [facility] Utilities Answer Date Recorded In the [...] declined 01/17/2024 How often do you attend lutheran or lutheran serv ices? Patient declined 01/17/2024 Do you belong to any clubs o r organizations such as lutheran groups, unions, fraternal or athletic groups, or [...] place to sleep or slept in a jail (including now)? No 01/17/2024 Personal Safety Answer [...] Comments Blood Pressure 128/78 09/27/2024 8:36 AM SENIOR EXAMINER Pulse 66 09/27/2024 8:36 AM SENIOR EXAMINER Temperature 36.7 C (98.1 F) 01/18/2024 8:00 AM CDT Respiratory Rate 16 01/18/2024 8:00 AM CDT Oxygen Saturation 94% 09/27/2024 8:36 AM SENIOR EXAMINER Inhaled Oxygen Concentration - - Weight 84.8 kg (187 lb) 09/27/2024 8:36 AM SENIOR EXAMINER Height 188 cm (6' 2 ) 09/27/2024 8:36 AM SENIOR EXAMINER Body Mass Index 24.01 09/27/2024 8:36 AM SENIOR EXAMINER Plan of Treatment Not on file Medical Devices Implanted Type Area Audio Video Mechanic Device Identifier Shelf Expiration Date Model / Serial / Lot [employer] Tendril Sts 6fr 58cm Is-1 Connector Active Fixation Bipolar Soft /58 - [id number] - [id number] Implanted:Qt y: 1 on 01/17/2024 by Gibson Sweeney MD at [facility] Lead Right: Ventricle [employer] 10/17/20268TC/5 8 / [id number] / [employer] Tendril Sts 6fr 52cm Is-1 Connector Active Fixation Bipolar Soft /52 - [id number] - [id number] Implanted:Qt y: 1 on 01/17/2024 by Gibson Sweeney MD at [facility] Lead Right: Atrial Appendage [employer] 11/17/20268TC/5 2 / [id number] / [employer] Assurity Mri [id number] Chamber Is-1 Connector Thk6mm Pacemaker [id number] - [id number] - [id number] Implanted:Qt y: 1 on 01/17/2024 by Gibson Sweeney MD at [facility] Pacemaker Right: Infraclavicular Anterior Chest Wall [employer] 05/11/2025 [id number] / [id number] / Procedures Procedure Name Priority Date/Time Associated Diagnosis Comments DEVICE CHECK - REMOTE Routine 12/18/2024 1:45 PM SENIOR EXAMINER Complete heart block (HCC) from Last 3 Months Results * DEVICE CHECK - REMOTE (12/18/2024 1:45 PM SENIOR EXAMINER) Anatomical Region Laterality Modality Other Narrative 12/21/2024 8:10 AM SENIOR EXAMINER [employer]farlane Assurity Dual Pacemaker. Dx; Second Degree AVB Type II. DOI 01/17/2024-Patel. Ramy remote. Routine DDD Pacemaker Remote. Transmission attached. Battery status: 2.99 V, 9.8-10.1 years remaining battery life to GREY. Stable lead impedances, pacing and sensing thresholds. 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 AF [place] < 1%. No Ventricular high rate episodes detected. Medications: No anticoagulation or cardiac meds See scanned report. Office pacemaker follow up: 04/25/25 Ramy remote f/u 03/13/25. Eduardo Meredith, RN Gibson Sweeney MD [facility] [place] [facility] Final Result from Last 3 Months Insurance [place] Advance Directives For more information, please contact: [phone] * Full Code (Latest Code Status on File) Date Activated Date Inactivated Comments 01/14/2024 11:56 PM 01/18/2024 7:09 PM Care Teams Basket Weaver Relationship Specialty Start Date End Date Marcus Marin MD [address] [place] [address] PCP - General Family Medicine 01/26/24 Gibson Sweeney MD [address] [address] Consulting Physician Cardiology 01/18/24
--- NOTE | 2025-02-26 19:49 | ED.EAR ---
HPI - Ear Problem General Chief complaint: Ear Stated complaint: ear FB Time Seen by Provider: 02/26/25 19:48 Source: patient Mode of arrival: ambulatory Limitations: no limitations History of Present Illness HPI Narrative: PART OF THE HEARING AID INSIDE THE EAR CANAL PRIOR TO ARRIVAL. NO OTHER COMPLAINTS. Related Data Home Medications ?Medication ?Instructions ?Recorded ?Confirmed ?Last Taken ?Type No Home Medications 02/26/25 02/26/25 Unknown History Allergies Allergy/AdvReac Type Severity Reaction Status Date / Time No Known Allergies Allergy Verified 12/08/24 07:46 Review of Systems Review of Systems: All systems reviewed & are unremarkable except as noted in HPI and below PMFSH Past Medical History Medical History No active medical problems Surgical History Surgical History No pertinent past surgical history Exam Narrative: GENERAL APPEARANCE: WELL-DEVELOPED, WELL-NOURISHED SKIN: NORMAL COLOR HEAD: NORMOCEPHALIC, NONTRAUMATIC EYES: CLEAR CONJUNCTIVA ENT: OROPHARYNX NORMAL, HEARING AID LEFT AUDITORY CANAL REMOVED USING ALLIGATOR NEUROLOGIC: ALERT AND ORIENTED ?3, PROCUREMENT ENGINEER IS NORMAL TESTED, NO GROSS MOTOR DEFICIT Procedures Foreign Body Removal Foreign Body #1: Foreign Body Removal Date: 02/26/25 Foreign Body Removal Time: 19:53 Time Out Performed: yes ( 5 MINUTE) Site: left and ear Description of foreign body: other ( HEARING AID) Sedation/Analgesia: none Technique: removal with forceps Confirmed by:: direct visualization Complications: none Post-procedure exam: awake, alert Neurovascular: no change from pre-procedure Foreign Body Removal Narrative: FROM BODY WAS REMOVED USING FORCEPS. PATIENT TOLERATED THE PROCEDURE WELL Discharge Plan Discharge Clinical Impression: Foreign body in ear Patient Disposition: Home Condition: Improved Instructions: Ear Foreign Body (ED) Additional Instructions: RETURN IF SYMPTOMS ARE WORSENING , CALL YOUR FAMILY PHYSICIAN FOR APPOINTMENT, TAKE TYLENOL NEEDED FOR ACHES AND PAIN, CONTINUE HOME MEDICATIONS. Patient Language: Hungarian Prescriptions: No Action No Home Medications Follow-up/Referrals: Marcus Marin MD [Primary Care Provider] -
[2025-02-26 19:58] VITALS: BP 140/90; PULSE 75; RESP 18; O2SAT 98
== END 2025-02-26 19:58 | disposition home or self-care (01) ==
PROVIDERS: Emergency Provider Emergency Medicine; PCP Family Medicine
DX: T16.2XXA Foreign body in left ear, initial encounter (principal); W44.G1XA Audio device entering into or through a natural orifice, initial encounter
CPT/HCPCS: 69200; 99282